=== PATIENT | female | born 1995 | race Caucasian/White ===

== ENCOUNTER 2021-08-22 13:03 | Outpatient (CLI) | payer BC, SELFPAY ==
--- NOTE | 2021-08-22 13:00 | CRLHL7_ITS ---
For Patients: As a result of the Century Cures Act, medical imaging exams and procedure reports are released immediately into your electronic medical record. You may view this report before your referring provider. If you have questions, please contact your health care provider. INDICATION: Dating and viability. LMP 06/20/2021. COMPARISON: None. TECHNIQUE: Real-time odom-scale imaging of the pelvis was performed. FINDINGS: Sonographic imaging demonstrates a single living intrauterine gestation. The embryo has a regular cardiac rate measuring 171 beats per minute. The embryo`s crown-rump length measurement of 2.0 cm corresponds to a gestational age of 8 weeks 4 days with a sonographic due date of 03/30/2022. There is a normal-appearing yolk sac. The placenta has not yet developed. There is a 2.2 x 0.3 x 1.3 cm hypoechoic collection along the left aspect of the gestational sac compatible with a subchorionic hemorrhage. The right ovary measures 4.4 x 2.1 x 2.5 cm and the left ovary measures 3.7 x 1.7 x 2.5 cm. Corpus luteum in the right ovary. There is also a 2.4 x 1.8 x 2.3 cm simple cyst in the right ovary. No free fluid in the cul-de-sac. IMPRESSION: 1. Single living intrauterine gestation with crown rump length 2.0 cm which corresponds to a gestational age of 8 weeks 4 days with a sonographic due date of 03/30/2022. 2. The clinical gestational age by LMP is 9 weeks 0 days. 3. Small subchorionic hemorrhage. Dictated by Estrella Blancas MD @ 08/22/2021 6:59:03 PM (Electronically Signed)
== END 2021-08-22 13:04 | disposition home or self-care (01) ==
LOC: US 13:06
PROVIDERS: Visit Provider Advanced Practice Midwife
DX: Z34.91 Encounter for supervision of normal pregnancy, unspecified, first trimester (principal); O20.9 Hemorrhage in early pregnancy, unspecified; Z3A.09 9 weeks gestation of pregnancy
CPT/HCPCS: 76817

== ENCOUNTER 2021-09-11 15:20 | Outpatient (CLI) | payer BC, SELFPAY ==
[2021-09-11 18:35] LABS: Hepatitis B Surface Antigen* Negative (Negative)
[2021-09-11 18:41] LABS: HIV 1/2/P24 Combo Screen* Negative (Negative)
[2021-09-11 18:52] LABS: Hepatitis C Virus Antibody* Negative (Negative)
[2021-09-14 04:19] LABS: Varicella-Zoster Virus Ab, IgG 571.7 IV
[2021-09-14 04:21] LABS: Rubella Antibody IgG 10.3 IU/mL
[2021-09-14 12:47] LABS: Rapid Plasma Reagin (RPR) Non Reactive (Non Reactive)
== END 2021-09-11 15:21 | disposition home or self-care (01) ==
LOC: NFLDREF 15:22
PROVIDERS: Visit Provider Advanced Practice Midwife
DX: Z34.91 Encounter for supervision of normal pregnancy, unspecified, first trimester (principal); Z3A.12 12 weeks gestation of pregnancy
CPT/HCPCS: 81420; 86592; 86703; 86762; 86787; 86803; 86850; 86900; 86901; 87086; 87340

== ENCOUNTER 2021-11-11 15:46 | Outpatient (CLI) | payer BC, SELFPAY ==
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
--- NOTE | 2021-11-11 16:00 | CRLHL7_ITS ---
For Patients: As a result of the Century Cures Act, medical imaging exams and procedure reports are released immediately into your electronic medical record. You may view this report before your referring provider. If you have questions, please contact your health care provider. INDICATION: Evaluate anatomy. COMPARISON: 08.22.21 TECHNIQUE: Real time odom scale imaging of the fetus was performed as well as color Doppler analysis of the umbilical vessels. FINDINGS: Sonographic imaging demonstrates a single living intrauterine gestation. Fetus demonstrates a regular cardiac rate of 163 beats per minute. Fetus has a vertex position. The placenta lies anteriorly without evidence of placenta previa. The edge of the placenta is located 11.6 cm from the internal cervical os. Amniotic fluid volume appears normal. Single deepest vertical pocket: 5.5 cm. The cervix is closed and measures 3.7 cm in length. The composite ultrasound gestational age is calculated at 20 weeks 6 days with an estimated sonographic due date of 03/25/2022. The estimated weight is 405 grams which lies at the 78th %. The following biometric measurements were obtained: Biparietal diameter: 4.8 cm/20 weeks 3 days 41st% Head circumference: 17.9 cm/20 weeks 2 days 31st% Abdominal circumference: 16.2 cm/21 weeks 2 days 68th% Femur length: 3.6 cm/21 weeks 2 days 68th% The HC/AC ratio measures: 1.10 range (1.06-1.25) On anatomic survey, there is a normal appearance of the cerebral ventricles, cavum septi pellucidi, cisterna magna and cerebellum. The nose, lips, and facial profile appear normal. The cervical, thoracic and lumbar spine are well visualized and appear normal. There is a normal four-chamber heart view and the left and right ventricular outflow tracts appear normal. The diaphragm and stomach appear normal. The kidneys and bladder also appear normal. There is a normal three-vessel cord. cord insertion site is located 8 millimeters from the edge of the placenta. The four extremities appear normal. IMPRESSION: Concordance of clinical and sonographic dating. Incomplete visualization of the four-chamber heart and outflow tracts. Remainder of the anatomic survey normal. Short-term follow-up recommended. Marginal placental cord insertion located 8 millimeters from the edge of the placenta. Dictated by Jerry Vazquez MD @ 11/12/2021 9:39:56 AM (Electronically Signed)
== END 2021-11-11 15:47 | disposition home or self-care (01) ==
LOC: US 15:46
PROVIDERS: Visit Provider Physician Assistant
DX: Z34.82 Encounter for supervision of other normal pregnancy, second trimester (principal); Z3A.20 20 weeks gestation of pregnancy
CPT/HCPCS: 76805

== ENCOUNTER 2021-11-18 11:38 | Emergency (ER) | payer BC, SELFPAY ==
[2021-11-18 11:45] VITALS: BP 119/71; PULSE 81; RESP 20; O2SAT 97; BMI 32.3
--- NOTE | 2021-11-18 11:49 | ED_ITS ---
HPI - General Adult General Chief complaint: Abdominal Pain Stated complaint: 21 weeks /from [facility]/appendix concerns Time Seen by Provider: 11/18/21 11:45 History of Present Illness HPI narrative: 26-year-old young woman presenting to the emergency department after being seen in Women's Health with concern of right lower quadrant abdominal pain. Was in usual state of health at 21+ week ; looks like on my review of records only potential complication is marginal cord insertion. She was in usual state of health. This morning went to the bathroom and urinated without difficulty. She also had a normal bowel movement. Would not consider herself constipated. Headed downstairs and was suddenly hit with the intense pain in the right low back flank area that also seemed to radiate around to the front and down the front of her right thigh not going beyond her knee. Does not have a history of back problems although not so long ago did strain her back a little bit at work; she works in food and beverage cashier at [employer]. She has not noted any dysuria or hematuria. Admittedly has not urinated since this onset of pain. She is not able to relieve it anyway. Not really describing any exacerbating factors either other than notes was sore with palpation in the right lower abdomen. Is Center with concern of appendicitis. Has not had any fever. Was a little nauseated earlier but no longer. Does not have a personal history of kidney stones and does not recall any of this in her family either. There is no new trauma at work. Does not describe any abdominal cramping that would seem to be related to or unusual vaginal discharge. She would prefer not to receive any pain medication noting that she does not want take Tylenol during . Related Data Home Medications Medication Instructions Recorded Confirmed prenat.vits,rogelio,xaz-qire-uoyhy 1 tab PO QDAY 08/22/21 11/18/21 acetaminophen 500 mg capsule 1,000 mg PO Q6H PRN 09/26/21 11/18/21 calcium carbonate 600 mg calcium 600 mg PO QDAY 09/26/21 11/18/21 (1,500 mg) tablet (Calcium) cholecalciferol (vitamin D3) 50 50 mcg PO QDAY 09/26/21 11/18/21 mcg (2,000 unit) capsule Previous Rx's Medication Instructions Recorded ondansetron 4 mg disintegrating 4 mg PO Q6H PRN nausea and 11/18/21 tablet vomiting #10 tabs oxycodone-acetaminophen 5 mg-325 1 - 2 tab PO Q6H PRN pain #12 tabs 11/18/21 mg tablet (Endocet) Allergies Allergy/AdvReac Type Severity Reaction Status Date / Time amoxicillin Allergy Mild Hives Uncoded 11/18/21 11:03 Review of Systems Status of ROS: Reports: 10 or more systems reviewed and unremarkable except as noted in History and below PFSH PFSH Medical History Anxiety Depression Surgical History History of placement of ear tubes [place] teeth extracted Family History Maternal Grandmother Cancer Father Heart attack FH: coronary artery bypass surgery Paternal Grandmother Cancer Social History Narrative: SOCIAL Education: 12th grade Work: cook at [employer] Partner: Denis russo Lives with: and son Pets: dog, cat Abuse: Denies past/present Special Diet: Denies Ok with a blood transfusion: yes Culture or orthodoxy beliefs: denies Smoking Status: Former smoker Do you use any of these nicotine containing products: E-Cigarettes Second hand tobacco smoke exposure: No How often do you have a drink containing alcohol: never How often do you have six or more drinks on one occasion: Never AUDIT-C Alcohol total score: 0 Non-prescribed substance use: denies use Little interest or pleasure in doing things: not at all Feeling down, depressed, or hopeless: not at all service: No Exam Narrative: Exam Narrative: Pleasant. NAD. Skin is warm and dry. Cheeks little flushed. Cranial nerves 2-12 intact. Breathing easily. Lungs appear to be clear. Cardiovascular with regular rate and rhythm Abdomen is soft. Appropriately gravid. She is ivtf-fd-exyinofyfl tender palpation deep in the right lower quadrant just above the inguinal area. Pain in areas as described in the upper sacrum and flank is not really reproducible. No SI area tenderness. No piriformis tenderness. Rotation of the hip does not exacerbate pain though she is a little hesitant. Negative straight leg raise. No pain to palpation over the leg. Extremities are well perfused. No significant edema. Const: Vital Signs, click to edit/add: Vital Signs - 24 hr 11/18/21 11:45 11/18/21 12:49 Pulse Rate [Pulse Oximeter] 81 67 Respiratory Rate 20 18 Blood Pressure [Ri t Upper Arm] 119/71 112/62 Pulse Oximetry 97 99 Oxygen Delivery Me thod Room Air Room Air Documenting provider has reviewed patient's vital signs: yes Course Course Hospital Course: IV hydration was initiated. Reevaluation(s) Reevaluation #1: Discomfort improved over time in the emergency department Vital Signs Vital signs: Initial Vital Signs Temperature Source Temporal Artery Scan 11/18/21 11:45 Pulse Rate 81 11/18/21 11:45 Pulse Rhythm 11/18/21 11:45 Respiratory Rate 20 11/18/21 11:45 Blood Pressure 119/71 11/18/21 11:45 Blood Pressure Mean 87 11/18/21 11:45 Blood Pressure Position Supine 11/18/21 11:45 Pulse Oximetry 97 11/18/21 11:45 Oxygen Delivery Method 11/18/21 11:45 Vital Signs Pulse Rate 81 11/18/21 11:45 Respiratory Rate 20 11/18/21 11:45 Blood Pressure 119/71 11/18/21 11:45 Pulse Oximetry 97 11/18/21 11:45 Oxygen Delivery Method 11/18/21 11:45 Pulse Rate 67 11/18/21 12:49 Respiratory Rate 18 11/18/21 12:49 Blood Pressure 112/62 11/18/21 12:49 Pulse Oximetry 99 11/18/21 12:49 Oxygen Delivery Method 11/18/21 12:49 Medical Decision Making MDM Narrative Medical decision making narrative: Have ordered ultrasound among other tests. Leading differential I think is ureteral stone and colic, possibly radicular back pain. Story is inconsistent for appendicitis. Possibly ovarian issue though also I think less likely. I observed renal ultrasound with our histology technologist. Appears to be measurable calcification in the proximal right ureter of about 6 mm. Jets were observed bilaterally. Radiology over-read IMPRESSION: Mild right hydronephrosis is not unexpected in . Questionable proximal ureteral stone. CRP mildly elevated. Urinalysis with ketones and blood Will be sending in pain medication and antiemetic. She is still reluctant to take anything but admits that might be a good idea to have something available. Lab Data Labs: Lab Results 11/18/21 11/18/21 11/18/21 Range/Units 12:00 12:20 12:20 WBC 9.63 (4.50-11.00) K/uL RBC 4.53 (4.00-5.20) m/uL Hgb 12.6 (12.0-16.0) gm/dL Hct 37.3 (33.0-51.0) % MCV 82 (80-100) fL MCH 28 (26-34) pg MCHC 34 (32-36) gm/dL RDW Coeff of Corina 12.4 (11.5-15.5) % Plt Count 296 (140-440) K/uL Neut % (Auto) 85.0 H (42.0-72.0) % Lymph % (Auto) 11.5 L (20-44) % [place] % (Auto) 3.2 (0.0-11.0) % Eos % (Auto) 0.1 (0.0-7.0) % Baso % (Auto) 0.1 (0.0-3.0) % Neut # (Auto) 8.20 H (1.7-7.0) K/uL Lymph # (Auto) 1.10 (0.90-2.90) K/uL [place] # (Auto) 0.30 (0.00-0.90) K/UL Eos # (Auto) 0.01 (0.00-0.50) K/uL Baso # (Auto) 0.01 (0.00-0.30) K/uL Abs Immat Gran (auto) 0.01 (0.00-0.30) K/uL Sodium 133 L (135-149) mmol/L Potassium 3.8 (3.6-5.1) mmol/L Chloride 106 (96-114) mmol/L Carbon Dioxide 17 L (20-32) mmol/L BUN 6 (5-24) mg/dL Creatinine 0.3 L (0.5-1.5) mg/dL Estimated Creat Clear 243.24 Estimated GFR 149 ml/min Glucose 94 (60-115) mg/dL Calcium 8.7 (8.4-10.6) mg/dL Total Bilirubin 0.2 (0.1-1.5) mg/dL Direct Bilirubin 0.1 (0.0-0.5) mg/dL AST 20 (12-35) U/L ALT 14 (4-35) U/L Alkaline Phosphatase 58 (40-150) U/L C-Reactive Protein 2.2 H (0.5-1.0) mg/dL Total Protein 7.2 (6.0-8.3) g/dL Albumin 4.0 (3.3-5.0) g/dL Urine Color Yellow (Yellow) Urine Appearance Clear (Clear) Urine pH 7.0 (5.0-8.5) Ur Specific [place] 1.020 (1.000-1.030) Urine Protein Negative (Negative) Urine Glucose (UA) Negative (Negative) Urine Ketones 2+ A (Negative) Urine Blood Trace-intact A (Negative) Urine Nitrite Negative (Negative) Urine Bilirubin Negative (Negative) Urine Urobilinogen 0.2 (0.2-1.0) Ur Leukocyte Esterase Negative (Negative) Urine RBC 5-10 A (0-2) Urine WBC 0-2 (0-5) Ur Squamous Epith Cells Moderate A (None-Few) Urine Bacteria Moderate A (None) Discharge Plan Discharge Clinical Impression: Colic, ureteral, Calculus, ureteral, Abdominal pain Patient Disposition: Home, Self-Care Condition: Stable Instructions: Ureteral Stones (ED) Additional Instructions: Certainly complicates this a little bit. I would however continue to stay well hydrated. Be seen/return to the emergency department for uncontrolled pain, repeated vomiting, associated fever. Follow-up in Women's Health if still having pain at 5 days. I would anticipate repeat ultrasound at that point, possibly repeat KUB, and then discussion for next step plans. In the meantime, strain urine. It would be appropriate to use as prescribed pain medications and anti nausea medications if needed. Prescriptions: New oxycodone-acetaminophen [Endocet] 5-325 mg tablet 1 - 2 tab PO Q6H PRN (Reason: pain) Qty: 12 0RF ondansetron 4 mg tablet,disintegrating 4 mg PO Q6H PRN (Reason: nausea and vomiting) Qty: 10 0RF No Action prenat.vits,rogelio,avq-ggqm-tsdlp Tablet 1 tab PO QDAY acetaminophen 500 mg capsule 1,000 mg PO Q6H PRN cholecalciferol (vitamin D3) 50 mcg (2,000 unit) capsule 50 mcg PO QDAY calcium carbonate [Calcium 600] 600 mg calcium (1,500 mg) tablet 600 mg PO QDAY Follow Up/Referrals: Provider,Not a Local [Primary Care Provider] - Stand Alone Forms: [employer] Info Instructions
--- NOTE | 2021-11-18 12:09 | CRLHL7_ITS ---
For Patients: As a result of the Century Cures Act, medical imaging exams and procedure reports are released immediately into your electronic medical record. You may view this report before your referring provider. If you have questions, please contact your health care provider. INDICATION: Right-sided flank pain. TECHNIQUE: Ultrasound renal and bladder complete. Martins-scale and color Doppler sonographic images were acquired of the kidneys and urinary bladder. COMPARISON: None. FINDINGS: Right kidney: 12.3 x 5 x 7.2 cm. Normal echotexture and cortex. Echogenic focus in the proximal ureter. Mild right hydronephrosis. Left kidney: 13.4 x 4.8 x 6.7 cm. Normal echotexture and cortex. No suspicious masses, stones, or hydronephrosis. Bladder: Normal in caliber and appearance. Color Doppler images demonstrate bilateral ureteral jets. IMPRESSION: Mild right hydronephrosis is not unexpected in . Questionable proximal ureteral stone. Dictated by Ari Pereira MD @ 11/18/2021 1:20:37 PM (Electronically Signed)
[2021-11-18 12:23] LABS: Appearance Urine Clear (Clear); Bilirubin Urine Negative (Negative); Blood Urine Trace-intact (Negative); Color Urine Yellow (Yellow); Glucose Urine Negative (Negative); Ketones Urine 2+ (Negative); Leukocyte Esterase Urine Negative (Negative); Nitrite Urine Negative (Negative); Protein Urine Negative (Negative); Urobilinogen Urine 0.2 (0.2-1.0)
--- OUTSIDE RECORDS SUMMARY | 2021-11-18 12:29 | XMS_ITS | Clinical Summary ---
:1995 Author Organization [employer] [facility] [employer] [facility] [place] [address] Care Team Providers Name Role Phone Rashmi [...] Name Administration Dates Next Due COVID-19 vaccine (MarketPageJ&TrackMaven) PF, 06/03/2020 MDV COVID-19 vaccine (Chilltime 06/05/2021 30mcg/0.3mL) 12YO+ LAUREL-SUCROSE PF, MDV DTaP [...] oz) AMAND A Complications: Intolerance Delivery Location: [facility] ([facility]) Comments: OT, Nuchal x1 Current OB Episode Summary Episode Dates Estimated Date of Pregravid Weight TWG (As of ) Delivery 07/30/2021 - Present 03/27/2022 (11/18/2021) Progress Notes 07/30/2021 - 5w5d - Alondra [...] ss Type Group WC WORKERS HALIMA CARTAGENA [id number] 2020-Pres [address] [place] [address] BLUE CROSS BLUE CROSS OF [id number] 2014-Presen [address] [facility] [place] [address] BLUE CROSS BLUE CROSS OF [id number] 2021-Presen [address] [facility] [place] [address] Tami Bowen Personal/Family Self 1995 [address] [address] Tami Bowen Workers Comp Self [address] [place] [address] Tami Bowen Motor Vehicle Self [address] (Home) [place] [address] Tami Bowen Motor Vehicle Self [phone] (Home) [place] [address] Advance Directives Latest Code Status on File Code Status Date Activated Date Inactivated Comments Full Code 10/25/2018 4:53 PM 10/27/2018 5:30 PM Care Teams Signal Apprentice Relationship Specialty Start Date End Date Rashmi Khan MD PCP - General Family Practice 05/04/[address] [place] [address] [place] [address]
[2021-11-18 12:30] LABS: Basophils Absolute Auto 0.01 K/uL (0.00-0.30); Basophils Percent Auto 0.1 % (0.0-3.0); Eosinophils Absolute Auto 0.01 K/uL (0.00-0.50); Eosinophils Percent Auto 0.1 % (0.0-7.0); Hematocrit 37.3 % (33.0-51.0); Hemoglobin* 12.6 gm/dL (12.0-16.0); Immature Granulocytes Abs Auto 0.01 K/uL (0.00-0.30); Lymphocytes Percent Auto 11.5 % (20-44); Mean Corpuscular HGB Conc 34 gm/dL (32-36); Mean Corpuscular Hemoglobin 28 pg (26-34); Mean Corpuscular Volume 82 fL (80-100); Monocytes Percent Auto 3.2 % (0.0-11.0); Platelet Count* 296 K/uL (140-440); RDW Coefficient of Variation % 12.4 % (11.5-15.5); Red Blood Count 4.53 m/uL (4.00-5.20); White Blood Count* 9.63 K/uL (4.50-11.00)
[2021-11-18 12:35] LABS: Slide Review Reflex No
[2021-11-18 12:38] LABS: Bacteria Urine Moderate; Squamous Epithelial Cell Urine Moderate (None-Few); WBC Urine 0-2 (0-5)
[2021-11-18] MEDS: 0.9 % SODIUM CHLORIDE 1000 ml 1,000 ML IV (12:48)
[2021-11-18 12:49] VITALS: BP 112/62; PULSE 67; RESP 18; O2SAT 99
[2021-11-18 13:00] LABS: Chloride* 106 mmol/L (96-114)
[2021-11-18 13:01] LABS: Potassium* 3.8 mmol/L (3.6-5.1); Sodium* 133 mmol/L (135-149)
[2021-11-18 13:03] LABS: Aspartate Amino Transferase* 20 U/L (12-35); Bilirubin Direct* 0.1 mg/dL (0.0-0.5); Bilirubin Total* 0.2 mg/dL (0.1-1.5); Carbon Dioxide* 17 mmol/L (20-32); Creatinine* 0.3 mg/dL (0.5-1.5); Est. Creatinine Clearance* 243.24; Estimated Glomerular Filt Rate 149 ml/min; Total Protein* 7.2 g/dL (6.0-8.3)
[2021-11-18 13:04] LABS: Alanine Aminotransferase* 14 U/L (4-35); Alkaline Phosphatase* 58 U/L (40-150); Blood Urea Nitrogen* 6 mg/dL (5-24); Calcium* 8.7 mg/dL (8.4-10.6); Glucose* 94 mg/dL (60-115)
[2021-11-18 13:06] LABS: C Reactive Protein* 2.2 mg/dL (0.5-1.0)
--- NOTE | 2021-11-18 13:53 | CRLHL7_ITS ---
For Patients: As a result of the Century Cures Act, medical imaging exams and procedure reports are released immediately into your electronic medical record. You may view this report before your referring provider. If you have questions, please contact your health care provider. INDICATION: Abdominal pain. TECHNIQUE: Abdomen 1 view. COMPARISON: None. FINDINGS: Bowel: Bowel pattern is normal. The amount of colonic stool is within normal limits. Other: No sign of significant free air. Small calcifications project over the right lower aspect of the pelvic inlet. Osseous structures are unremarkable for age. IMPRESSION: Small calcifications project over the right lower aspect of the pelvic inlet, which may reflect ureteral stones versus phleboliths. Dictated by Magnus Parra MD @ 11/18/2021 3:13:27 PM (Electronically Signed)
== END 2021-11-18 14:25 | disposition home or self-care (01) ==
PROVIDERS: Emergency Provider Family Medicine
DX: N20.1 Calculus of ureter (principal); Z3A.21 21 weeks gestation of pregnancy
CPT/HCPCS: 36415; 74018; 76770; 80048; 80076; 81001; 85025; 86140; 87086; 99284; J7030

== ENCOUNTER 2021-11-28 14:59 | Outpatient (CLI) | payer BC, SELFPAY ==
--- NOTE | 2021-11-28 15:00 | CRLHL7_ITS ---
For Patients: As a result of the Century Cures Act, medical imaging exams and procedure reports are released immediately into your electronic medical record. You may view this report before your referring provider. If you have questions, please contact your health care provider. INDICATION: F/U ON Suboptimal VIEWS OF HEART COMPARISON: 11/11/2021 TECHNIQUE: Real time odom scale imaging of the fetus was performed. FINDINGS: Sonographic imaging demonstrates a single living intrauterine gestation. Fetus demonstrates a regular cardiac rate of 159 beats per minute. Fetus has a transverse/vertex position. The placenta lies left anterior. Amniotic fluid volume appears normal. Single deepest vertical pocket: 5.7 cm. There is a normal four-chamber heart view and the left and right ventricular outflow tracts appear normal. IMPRESSION: Normal heart views. Dictated by Jerry Vazquez MD @ 12/01/2021 9:33:14 AM (Electronically Signed)
--- OUTSIDE RECORDS SUMMARY | 2021-11-28 15:01 | XMS_ITS | Clinical Summary ---
:1995 Author Organization [employer] [facility] [place] [address] Care Team Providers Name Role Phone Rashmi [...] Name Administration Dates Next Due COVID-19 vaccine (AirPairJ&PetroFeed) PF, 06/03/2020 MDV COVID-19 vaccine (MySmartPrice 06/05/2021 30mcg/0.3mL) 12YO+ LAUREL-SUCROSE PF, MDV DTaP [...] oz) AMAND A Complications: Intolerance Delivery Location: [facility] ([facility]) Comments: OT, Nuchal x1 Current OB Episode Summary Episode Dates Estimated Date of Pregravid Weight TWG (As of ) Delivery 07/30/2021 - Present 03/27/2022 (11/28/2021) Progress Notes 07/30/2021 - 5w5d - Alondra Donohue R N .1st OB Visit with Alina a[place] over the anabelle ne Advised patient to [...] ss Type Group WC WORKERS HALIMA CARTAGENA [id number] 2020-Pres [address] [place] [address] BLUE CROSS BLUE CROSS OF [id number] 2014-Presen [address] [facility] [place] [address] BLUE CROSS BLUE CROSS OF [id number] 2021-Presen [address] [facility] [address] Tami Bowen Personal/Family Self 1995 [address]Home) [place] [address] Tami Bowen Workers Comp Self 1995 [address] [place] [address] Tami Bowen Motor Vehicle Self 1995 [address] [address] Tami Bowen Motor Vehicle Self [phone] (Home) [place] [address] Advance Directives Latest Code Status on File Code Status Date Activated Date Inactivated Comments Full Code 10/25/2018 4:53 PM 10/27/2018 5:30 PM Care Teams Plate Glass Installer Helper Relationship Specialty Start Date End Date Rashmi Khan MD PCP - General Family Practice 05/04/[address] [place] [address] [place] [address]
== END 2021-11-28 15:00 | disposition home or self-care (01) ==
LOC: US 14:59
PROVIDERS: Visit Provider Obstetrics & Gynecology
DX: Z34.92 Encounter for supervision of normal pregnancy, unspecified, second trimester (principal); Z3A.23 23 weeks gestation of pregnancy
CPT/HCPCS: 76815; 76816

== ENCOUNTER 2022-01-02 13:54 | Outpatient (CLI) | payer BC, SELFPAY ==
--- OUTSIDE RECORDS SUMMARY | 2022-01-02 13:56 | XMS_ITS | Clinical Summary ---
:1995 Author Organization [employer] [facility] [employer] [facility] [place] [address] Care Team Providers Name Role Phone Rashmi [...] Name Administration Dates Next Due COVID-19 vaccine (AppCardJ&Information Development Consultants) PF, 06/03/2020 MDV COVID-19 vaccine (Amanda Huff DBA [employer]overy 06/05/2021 30mcg/0.3mL) 12YO+ LAUREL-SUCROSE PF, MDV DTaP [...] oz) AMAND A Complications: Intolerance Delivery Location: [facility] ([facility]) Comments: OT, Nuchal x1 Current OB Episode Summary Episode Dates Estimated Date of Pregravid Weight TWG (As of ) Delivery 07/30/2021 - Present 03/27/2022 (01/02/2022) Progress Notes 07/30/2021 - 5w5d - Alondra [...] Hepatitis C screening for age 0305/09/2012 18-79 COVID-19 vaccine series (3 - 07/31/2021 06/05/2021, 021 Booster for Peter series) Influenza for age 9-49 10/23/2021 11/17/2019, 12/05/2018, 12/01/2016, Additional history exists Pap test for age 21-65 03/03/2022 03/03/2019, 12/20/2015 Depression screening for age 12+ 06/05/2022 06/05/2021, 11/2019, 03/03/2019, Additional history exists BMI (ht and wt on same day) for 07/03/2022 07/03/2021, 05/23, age 18+ 12/30/2020, Additional history exists Tetanus booster 08/29/2028 08/29/2018, 12/01/2016, 11/03/2006 Tdap Completed 08/29/2018, 12/01/2016, 11/03/2006 Results Not on filefrom Last 3 Months Insurance Payer Benefit Plan / Subscriber ID Effective Dates Phone Addre ss Type Group WC WORKERS WC CARTAGENA [id number] 2020-Pres [address] [facility] [place] [address] BLUE CROSS BLUE CROSS OF [id number] 2014-Presen [address] [place] [address] BLUE CROSS BLUE CROSS OF [id number] 2021-Presen [address] [facility] [place] [address] Tami Bowen Personal/Family Self 1995 [address] (Home) [place] [address] Tami Bowen Workers Comp Self 1995 [address] (Home) [place] [address] Tami Bowen Motor Vehicle Self 1995 [address] (Home) [place] [address] Tami Bowen Motor Vehicle Self [phone] (Home) [place] [address] Advance Directives Latest Code Status on File Code Status Date Activated Date Inactivated Comments Full Code 10/25/2018 4:53 PM 10/27/2018 5:30 PM Care Teams Clinical Account Executive Relationship Specialty Start Date End Date Rashmi Khan MD PCP - General Family Practice 05/04/[address] [place] [address] [place] [address]
[2022-01-06 11:45] LABS: Rapid Plasma Reagin (RPR) Non Reactive (Non Reactive)
== END 2022-01-02 13:55 | disposition home or self-care (01) ==
LOC: NFLDREF 13:54
PROVIDERS: Visit Provider Obstetrics & Gynecology
DX: Z34.90 Encounter for supervision of normal pregnancy, unspecified, unspecified trimester (principal)
CPT/HCPCS: 86592

== ENCOUNTER 2022-02-03 14:59 | Outpatient (CLI) | payer BC, SELFPAY ==
--- NOTE | 2022-02-03 15:00 | CRLHL7_ITS ---
For Patients: As a result of the Cures Act, medical imaging exams and procedure reports are released immediately into your electronic medical record. You may view this report before your referring provider. If you have questions, please contact your health care provider. INDICATION: Check growth. COMPARISON: OB ultrasound 11/11/2021. TECHNIQUE: Real time odom scale imaging of the fetus was performed. FINDINGS: Sonographic imaging demonstrates a single living intrauterine gestation. The fetus has a regular cardiac rate of 161 beats per minute. The fetus has a cephalic orientation. The placenta lies anteriorly without evidence of placenta previa. Eccentric placental cord insertion located 5.7 cm from the placental margin. Amniotic fluid volume appears normal with single deepest pocket measuring 6.8 cm. The composite ultrasound gestational age is calculated at 32 weeks 6 days with an estimated sonographic due date of 03/25/2022. The estimated weight is 2090 grams which lies at the 53rd percentile. The following biometric measurements were obtained: Biparietal diameter: 8.25 cm (33 weeks 1 day) (60th percentile) Head circumference: 30.23 cm (33 weeks 4 days) (38th percentile) Abdominal circumference: 30.28 cm (34 weeks 2 days) (90th percentile) Femur length: 5.79 cm (30 weeks 2 days) (less than 3rd percentile) The HC/AC ratio measures: 1.00 (range 0.96-1.11) IMPRESSION: 1. Single living intrauterine gestation in cephalic position with heart rate 161 beats per minute. 2. Ultrasound gestational age 32 weeks 6 days with sonographic due date 03/25/2022. This is concordant with the clinical gestational age of 32 weeks 4 days. 3. Estimated weight is 53rd percentile. Dictated by Estrella Blancas MD @ 02/03/2022 11:23:46 PM (Electronically Signed)
--- OUTSIDE RECORDS SUMMARY | 2022-02-03 15:01 | XMS_ITS | Clinical Summary ---
:1995 Author Organization [facility] [employer] [facility] [place] [address] Care Team Providers Name Role Phone Rashmi [...] Name Administration Dates Next Due COVID-19 vaccine (GenomeJ&GROUNDBOOTH) PF, 06/03/2020 MDV COVID-19 vaccine (Agentrun 06/05/2021 30mcg/0.3mL) 12YO+ LAURLE-SUCROSE PF, MDV DTaP 11/03/2006 Human Papilloma Virus [...] Tobacco Use Types Packs/Day Years Used Date Smoking Tobacco: Former Cigarettes Smokeless Tobacco: Never Tobacco Cessation: Ready to Quit: No; Co [...] one Less than mo nthly 03/03/2019 occasion? Estimated Date of Delivery Comments Yes 03/27/2022 [...] Epidu N Andree 8 9 GILLI KJR, /2018 2d (7 lb VACU ral ng S,BB AJE 6.2 oz) AMAND A Complications: Intolerance Delivery Location: [facility]) Comments: OT, Nuchal x1 Current OB Episode Summary Episode Dates Number of Fetuses Estimated Date of De livery 07/30/2021 - Present (02/03/2022) 2022 (set by Alondra Donohue, RN on 022 based on Alternate DAVIS Entry) Dating Summary Based On DAVIS GA Diff Last Menstrual Period on 06/20/2021 (Approximate) 03/27/2022 Same Alternate DAVIS Entry 03/27/2022 Working Notes Progress Notes - Phone OB Encounter - - GA:5w5d 07/30/2021 - 5w5d - Alondra Donohue R N Formatting of this note is different fro m the original. .1st OB Visit with Alina [place] over [...] exists Tetanus booster 08/29/2028 08/29/2018, 12/01/2016, 11/03/2006 HIV for age 15-65 Completed 03/22/2018 Tdap Completed 08/29/2018, 12/01/2016, 11/03/2006 Results Not on filefrom Last 3 Months Insurance Payer Benefit Plan / Subscriber ID Effective Dates Phone Addre ss Type Group WC WORKERS HALIMA RODASHER [id number] 2020-Pres [address] MAR YALICE KHANNA [facility] [place] [address] BLUE CROSS BLUE CROSS OF [id number] 2014-Presen [address] [place] [phone] BLUE CROSS BLUE CROSS OF [id number] 2021-Presen [address] [place] [phone] Tami Bowen Personal/Family Self 1995 [address]) [place] [address] Tami Bowen Workers Comp Self 1995 [address]) [place] [address] Tami Bowen Motor Vehicle Self 1995 [address] ([place]) [place] [address] Tami Bowen Motor Vehicle Self [phone] (Home) [place] [address] Advance Directives Latest Code Status on File Code Status Date Activated Date Inactivated Comments Full Code 10/25/2018 4:53 PM 10/27/2018 5:30 PM Care Teams Specimen Preparation Assistant Relationship Specialty Start Date End Date Rashmi Khan MD PCP - General Family Practice 05/04/18 [address] [facility] [place] [address]
== END 2022-02-03 15:00 | disposition home or self-care (01) ==
PROVIDERS: Visit Provider Registered Nurse
DX: O43.193 Other malformation of placenta, third trimester (principal); Z3A.32 32 weeks gestation of pregnancy
CPT/HCPCS: 76816; 87086

== ENCOUNTER 2022-02-27 15:28 | Outpatient (CLI) | payer BC, SELFPAY ==
[2022-02-28 16:00] LABS: Strep B DNA Probe NEGATIVE (Negative)
[2022-03-01 07:25] LABS: Strep B Pen/Amox Allergy No
== END 2022-02-27 15:29 | disposition home or self-care (01) ==
PROVIDERS: Visit Provider Obstetrics & Gynecology
DX: Z34.93 Encounter for supervision of normal pregnancy, unspecified, third trimester (principal); Z3A.36 36 weeks gestation of pregnancy
CPT/HCPCS: 87081; 87653

== ENCOUNTER 2022-03-13 10:55 | Inpatient (IN) | payer BC, SELFPAY ==
[2022-03-13] VITALS (36 sets, daily range): BP systolic 119–196; BP diastolic 52–91; PULSE 75–125; RESP 16–18; TEMP 36.6–36.9; O2SAT 80–100; BMI 36.7
--- NOTE | 2022-03-13 11:33 | PM.OBHPLI ---
OB - H&P: HPI Labor/Induction History of Present Illness Time Seen by Provider: 11:35 Date Seen: 03/13/22 Chief Complaint: Elevated blood pressure at 38 weeks 0 days gestation. Chief complaint: Maternity : 2 Para: 1 Indications for induction: induced hypertension Narrative: Tami Bowen is a 26 year old 2 para 1 who was admitted for gestational hypertension with 2 blood pressure readings of 140s/90s in the clinic today. She is 38 weeks 0 days gestation with an DAVIS of 03/27/2022 by a last menstrual period of 06/20/2021 which was consistent with early ultrasound. She also complains of severe headache and nausea and vomiting since last night. She denies any respiratory symptoms: No sore throat, cough, nasal congestion, fever or loss of sense of taste/smell. She denies having contractions. Her baby has been moving normally. Her feet history and physical was completed by Dr. Menjivar on 03/06/2022. Please see that note for complete details. On admission her membranes were intact. Preeclampsia labs: CBC without diff, AST, ALT, creatinine, BUN and urine for protein/creatinine ratio were ordered. OB PROBLEM LIST: -Denis 1. Anxiety and Depression-declines medications at this time. 2. Needs a pap . 3. h/o traumatic first delivery 4. Marginal cord insertion. US for EFW at 32 weeks. 32 weeks: EFW: 53%. BPD 60%, HC 38%, AC 90%, FL <3%. Eccentric cord insertion now 5.7cm from edge. 5. Incomplete views of heart at 20 weeks; repeat scan normal. 6. GHTN r/o PreE (03/13/2022) - Mild ranging BP x 2 - Will move toward induction - PreE labs to be drawn at center Covid: Vaccinated and boosted Flu: 11/28 Tdap: 01/21/22 GENERAL APPEARANCE: Pleasant, , well-groomed woman in no acute distress, appears somewhat anxious. VITAL SIGNS: as noted in nursing notes HEAD: Normocephalic, atraumatic. THYROID: no masses, nodularity, tenderness or enlargement. LUNGS: Clear to auscultation bilaterally without wheezes, rales or rhonchi. HEART: Regular rate and rhythm with normal S1 and S2. No gallop, rub or murmur. ABDOMEN: Gravid. Soft, nontender, nondistended, with normal bowels sounds throughout. EFM: Baseline: 130s, accelerations present, no decelerations, sporadic contractions, reactive, category 1. PRESENTATION: Vertex by Wang's maneuvers. SVE per Dr. Menjivar: 1.5 cm/ 30 %/ -1/soft/mid. Lovett score: 6 EXTREMITIES: No cyanosis, clubbing, or edema. No varicosities. NEUROLOGIC: Normal gait and balance. Normal deep tendon reflexes at bilateral patella 2+/2, equal without clonus. PSYCHIATRIC: alert and oriented x3. Normal speech pattern, eye contact and affect. SKIN: Warm, dry, and well perfused. Good turgor. No lesions, nodules or rashes. Assessment: 26-year-old 2 para 1001 at 38 weeks 0 days gestation with elevated blood pressure. Plan: 1. Vaginal Cytotec for cervical ripening. 2. Start Pitocin per induction protocol when Lovett score is >/= 8. 3. GBS negative 4. Blood type: B positive 5. Expect vaginal delivery 6. Is planning epidural for labor analgesia. Comments: Patient's history and physical from Dr. Menjivar on 03/06/2022: Patient's care began at 8 and 4/7 weeks gestation.? She is dated by first trimester US consistent with LMP.? EDC is March 27, 2022.? She has had routine visits since that time. Total visits so far: 11 GBS negative ALLERGIES:? 1. Amoxicillin MEDICATIONS:? See EMR OBSTETRIC HISTORY: G 2 P 1001.? One Vaginal delivery Delivery history: 1.? 10/25/2018: 40 and 0/7th weeks.? 3345 kg. Vacuum extraction. MEDICAL HISTORY:? Anxiety Depression PAST SURGICAL HISTORY:? History of placement of ear tubes [place] teeth extracted Narrative:? SOCIAL ? ? Education:? 12th grade ? ? 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 ? Partner: Denis russo ? ? Lives with:? and son ? ? Pets: dog, cat? ? Abuse:? Denies past/present ? ? Special Diet: Denies ? ? Ok with a blood transfusion:? yes ? Culture or jainism beliefs:? denies Smoking Status:? Former smoker Do you use any of these nicotine containing products:? E-Cigarettes Second hand tobacco smoke exposure:? No How often do you have a drink containing alcohol:? never How often do you have six or more drinks on one occasion:? Never AUDIT-C Alcohol total score:? 0 Non-prescribed substance use:? denies use Little interest or pleasure in doing things:? not at all Feeling down, depressed, or hopeless:? not at all service:? No Date of last pap smear: November 2018 History of abnormal pap smear: No : 2 Para: 1 (2000) # of abortions spontaneous: 0 # of abortions induced: 0 History of multiple gestations: No History of pregnancies: No History of ectopic pregnancies: No History of sexually transmitted diseases: No Treatment for infertility: No 13 POINT COMPREHENSIVE REVIEW OF SYSTEMS:? negative other than as dictated above. Meds Home Medications and Allergies Home Medications Medication Instructions Recorded Confirmed Type prenat.vits,rogelio,mov-epnf-ktdza 1 tab PO QDAY 08/22/21 03/13/22 History acetaminophen 500 mg capsule 1,000 mg PO Q6H PRN 09/26/21 03/13/22 History calcium carbonate 600 mg calcium 600 mg PO QDAY 09/26/21 03/13/22 History (1,500 mg) tablet (Calcium) cholecalciferol (vitamin D3) 50 50 mcg PO QDAY 09/26/21 03/13/22 History mcg (2,000 unit) capsule Allergies Allergy/AdvReac Type Severity Reaction Status Date / Time amoxicillin Allergy Hives Verified 03/13/22 11:25 OB - H&P: Exam Physical Exam: Vital signs: Pulse BP Pulse Ox 96 125/81 97 03/13/22 11:31 03/13/22 11:31 03/13/22 11:12
[2022-03-13 11:50] LABS: Hematocrit 35.6 % (33.0-51.0); Hemoglobin* 11.7 gm/dL (12.0-16.0); Mean Corpuscular HGB Conc 33 gm/dL (32-36); Mean Corpuscular Hemoglobin 26 pg (26-34); Mean Corpuscular Volume 78 fL (80-100); Platelet Count* 297 K/uL (140-440); Red Blood Count 4.57 m/uL (4.00-5.20); White Blood Count* 9.04 K/uL (4.50-11.00)
[2022-03-13 12:05] LABS: Slide Review Reflex No
[2022-03-13 12:06] LABS: Aspartate Amino Transferase* 22 U/L (12-35); Creatinine* 0.4 mg/dL (0.5-1.5); Estimated Glomerular Filt Rate 139 ml/min
[2022-03-13 12:07] LABS: Alanine Aminotransferase* 16 U/L (4-35); Blood Urea Nitrogen* 4 mg/dL (5-24); INR 0.94 (0.91-1.10); Prothrombin Time 13.2 Seconds
[2022-03-13 12:12] LABS: Fibrinogen* 583 mg/dL (200-450)
[2022-03-13] MEDS: miSOPROStoL 25 MCG/0.25 TABLET VAGINAL ×2 (12:21→15:41)
[2022-03-13 12:34] LABS: Total Protein Urine 25 mg/dL
[2022-03-13 12:35] LABS: Creatinine Urine 29.7 mg/dL
[2022-03-13 12:36] LABS: SARS PCR* Negative SARS-CoV-2 (Negative)
[2022-03-13] MEDS: ACETAMINOPHEN 500 MG TABLET 1000 MG PO (12:42)
[2022-03-13 13:17] LABS: Basophils Absolute Auto 0.01 K/uL (0.00-0.30); Basophils Percent Auto 0.1 % (0.0-3.0); Eosinophils Absolute Auto 0.09 K/uL (0.00-0.50); Hematocrit 35.9 % (33.0-51.0); Hemoglobin* 11.8 gm/dL (12.0-16.0); Immature Granulocytes Abs Auto 0.02 K/uL (0.00-0.30); Immature Granulocytes Pct Auto 0.2 %; Lymphocytes Percent Auto 18.3 % (20-44); Mean Corpuscular HGB Conc 33 gm/dL (32-36); Mean Corpuscular Hemoglobin 26 pg (26-34); Mean Corpuscular Volume 78 fL (80-100); Monocytes Percent Auto 7.3 % (0.0-11.0); Neutrophils Percent Auto 73.1 % (42.0-72.0); Platelet Count* 294 K/uL (140-440); RDW Coefficient of Variation % 13.3 % (11.5-15.5); Red Blood Count 4.58 m/uL (4.00-5.20); White Blood Count* 8.78 K/uL (4.50-11.00)
[2022-03-13 13:40] LABS: Slide Review Reflex No
--- NOTE | 2022-03-13 18:30 | PM.OBPNL ---
Subjective Date Seen: 03/13/22 Narrative: Subjective: Patient is comfortable with with contractions. Has received 2 doses of vaginal Cytotec. Is having regular contractions she is rating them 3/10. Her blood pressures have been 120s-130s/70s-80s. She gave verbal consent to artificially rupture membranes. Vital signs: Per electronic medical record. EFM: Baseline 130s, positive accelerations, negative decelerations, moderate variability, reactive. Category 1. [place]: Contractions every 2-3 minutes. SVE: 3 cm/70%/0/mid/soft. AROM occurred at 6:15Pm: Clear fluid. Lovett score: 9. Assessment: Tami is a 26-year-old 2 para 1001 at 38 weeks 1 days gestation undergoing induction of labor due to mild preeclampsia. Plan: 1. Start Pitocin at 7:40 p.m. if contractions continue to be mild per patient report. 2. The patient is planning an epidural for labor analgesia. 3. GBS negative 4. Rh positive Objective Vital Signs: Last Vital Signs Temp 97.9 F 03/13/22 18:19 Pulse 82 03/13/22 18:17 Resp 16 03/13/22 18:19 BP 137/87 03/13/22 18:17 Pulse Ox 97 03/13/22 11:12
[2022-03-13] MEDS: LACTATED RINGERS 1000 ML 1,000 ML IV (19:28)
[2022-03-13] MEDS: LIDOCAINE 2% (PF) 5 ML VIAL EPIDURAL (20:17)
[2022-03-13] MEDS: ROPIVACAINE 0.2% 100 ml 100 ML 12 MG EPIDURAL (20:20)
--- NOTE | 2022-03-13 20:25 | P.ANBPRC_ITS ---
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 Lives with: and son Pets: dog, cat Abuse: Denies past/present Special Diet: Denies Ok with a blood transfusion: yes Culture or hinduism beliefs: denies Smoking Status: Former smoker Do you use any of these nicotine containing products: E-Cigarettes Second hand tobacco smoke exposure: No How often do you have a drink containing alcohol: never How often do you have six or more drinks on one occasion: Never AUDIT-C Alcohol total score: 0 Non-prescribed substance use: denies use Little interest or pleasure in doing things: not at all Feeling down, depressed, or hopeless: not at all service: No Meds Home Medications and Allergies Home Medications Medication Instructions Recorded Confirmed Type prenat.vits,rogelio,qiw-kipe-dtbaj 1 tab PO QDAY 08/22/21 03/13/22 History acetaminophen 500 mg capsule 1,000 mg PO Q6H PRN 09/26/21 03/13/22 History calcium carbonate 600 mg calcium 600 mg PO QDAY 09/26/21 03/13/22 History (1,500 mg) tablet (Calcium) cholecalciferol (vitamin D3) 50 50 mcg PO QDAY 09/26/21 03/13/22 History mcg (2,000 unit) capsule Allergies Allergy/AdvReac Type Severity Reaction Status Date / Time amoxicillin Allergy Hives Verified 03/13/22 12:45 Results Labs Labs: Laboratory Results - last 24 hr 03/13/22 03/13/22 03/13/22 11:27 11:28 11:45 WBC 9.04 RBC 4.57 Hgb 11.7 L Hct 35.6 MCV 78 L MCH 26 MCHC 33 RDW Coeff of Corina Plt Count 297 Neut % (Auto) Lymph % (Auto) [place] % (Auto) Eos % (Auto) Baso % (Auto) Neut # (Auto) Lymph # (Auto) [place] # (Auto) Eos # (Auto) Baso # (Auto) INR Fibrinogen BUN Creatinine Estimated GFR AST ALT Urine Creatinine 29.7 Protein/Creatinin Ratio 0.80 H Urine Total Protein 25 SARS-CoV-2 (PCR) Negative SARS-CoV-2 Blood Type Antibody Screen 03/13/22 03/13/22 03/13/22 11:45 11:45 11:50 WBC 8.78 RBC 4.58 Hgb 11.8 L Hct 35.9 MCV 78 L MCH 26 MCHC 33 RDW Coeff of Corina 13.3 Plt Count 294 Neut % (Auto) 73.1 H Lymph % (Auto) 18.3 L [place] % (Auto) 7.3 Eos % (Auto) 1.0 Baso % (Auto) 0.1 Neut # (Auto) 6.40 Lymph # (Auto) 1.60 [place] # (Auto) 0.60 Eos # (Auto) 0.09 Baso # (Auto) 0.01 INR 0.94 Fibrinogen 583 H BUN 4 L Creatinine 0.4 L Estimated GFR 139 AST 22 ALT 16 Urine Creatinine Protein/Creatinin Ratio Urine Total Protein SARS-CoV-2 (PCR) Blood Type Antibody Screen 03/13/22 11:50 WBC RBC Hgb Hct MCV MCH MCHC RDW Coeff of Corina Plt Count Neut % (Auto) Lymph % (Auto) [place] % (Auto) Eos % (Auto) Baso % (Auto) Neut # (Auto) Lymph # (Auto) [place] # (Auto) Eos # (Auto) Baso # (Auto) INR Fibrinogen BUN Creatinine Estimated GFR AST ALT Urine Creatinine Protein/Creatinin Ratio Urine Total Protein SARS-CoV-2 (PCR) Blood Type B Positive Antibody Screen NEGATIVE Vital Signs Vital Signs: Last Vital Signs Temp 98.1 F 03/13/22 19:15 Pulse 85 03/13/22 20:20 Resp 16 03/13/22 19:15 BP 155/85 H 03/13/22 20:20 Pulse Ox 100 03/13/22 20:24 Weight: 97.9 kg Height: 163.2 cm Anesthesia Procedures Epidural Insertion Start Time: 20:00 Stop Time: 20:30 Start Date: 03/13/22 Stop Date: 03/13/22 Reason for Block: procedure for pain Patient Position: sitting Performed By: Kurt Song Preanesthetic Checklist: IV checked, risks and benefits discussed, surgical consent, monitors and equipment checked and anesthesia consent Prep: chlorhexidine gluconate Monitoring: blood pressure monitoring Approach: midline Vertebral Space: lumbar (1-5) Epidural Technique: HERMAN saline Needle Type: Tuohy needle Injection Technique: continuous catheter Needle gauge: 17 Needle Length (cm): 10 cm Needle Insertion Depth (cm): 5 Catheter Gauge: 19 Catheter Type: multi-orifice Catheter at skin depth (cm): 10 Test Dose Result: negative
[2022-03-13] MEDS: LACTATED RINGERS 1000 ML 1,000 ML 125 ML IV (20:34)
[2022-03-13] MEDS: PHENYLEPHRINE 100 MCG/ML SYRINGE IVP (20:53)
[2022-03-13] MEDS: OXYTOCIN 30 unit/500 ML in NS 30 UNIT/500 ML BAG 300 UNIT IVPB (21:39)
[2022-03-13] MEDS: LIDOCAINE 1 % PF 30 ML INJECTION (21:39)
--- NOTE | 2022-03-13 22:06 | PM.OBPRCVD ---
Procedure Delivery date: 03/13/22 Procedure Done: Global Procedure Details: Tami is a 26 year-old G to P 1001 now to admitted on 03/13/2022 at 11:30 a.m. at 38 Weeks, 1 Day gestation for induction of labor due to mild preeclampsia. AROM occurred at 6:15 p.m. on 03/13/2022 with clear fluid. Labor Analgesia: Epidural attempted that did not work well. Pitocin: No Labor onset: 03/13/2022 at 7:05 p.m.. Complete: 03/13/2022 at 9:07 p.m.. Pushin03/13/2022 at 9:09 p.m.. heart tones during second stage were: Moderate variability with variable decelerations with contractions with intermittent late return to baseline but reassuring overall. At 9:31 p.m. a viable [male/female] delivered in vertex direct OA presentation with restitution to ROT over an intact perineum via spontaneous vaginal delivery. The was placed on maternal abdomen. Cord was clamped and cut after a 60 second delay. Nose and mouth were bulb suctioned. weight pen. 8 at 1 minute and not at 5 minutes. Shoulder dystocia: No. Nuchal cord: No Placenta delivered 03/13/2022 delivered spontaneously and complete at 9:51 a.m. p.m. with velamentous insertion of a three-vessel umbilical cord Laceration(s): None Blood loss: 50 mL. Blood loss measurement type: Quantitative Sponge and needles counts are correct. Specimen: Placenta Mother and infant were stable after delivery. Infant's name: Garry The patient is planning on breast feeding. Events: Labor Induction and Other (Mild preeclampsia) Intrapartal Events: Labor Induction Induction method: per misoprostol protocol Delivery augmentation: rupture of membranes Delivery monitor: external FHT Route of delivery: Laceration description: None Anesthesia type: Epidural
[2022-03-14] VITALS (7 sets, daily range): BP systolic 114–124; BP diastolic 67–80; PULSE 70–99; RESP 14–18; TEMP 36.3–36.7; O2SAT 96–98
[2022-03-14 08:28] LABS: INR 0.96 (0.91-1.10); Prothrombin Time 13.4 Seconds
[2022-03-14] MEDS: LANOLIN CREAM 1 APPLIC TOPICAL (09:47)
[2022-03-14 09:59] LABS: Fibrinogen* 565 mg/dL (200-450)
--- NOTE | 2022-03-14 10:19 | PM.OBPNVD1 ---
OB - PN:Subj Subjective Time Seen by Provider: 10:19 Date Seen: 03/14/22 Patient comments OB post-: no complaints status: and doing well Narrative: Denies headache, RUQ aponte, nausea, increased swelling. OB - PN: Obj Exam Physical Exam: Vital signs: Temp Pulse Resp BP Pulse Ox O2 Del Method 97.9 F 76 18 121/79 97 03/14/22 08:00 03/14/22 08:00 03/14/22 08:00 03/14/22 08:00 03/14/22 08:00 03/14/22 08:00 Constitutional: Constitutional: no acute distress Routine Abdominal Exam: Abdominal: Present soft; Absent tenderness Fundus: Present firm Routine Extremities Exam: Extremities: Present normal inspection and pedal edema; Absent calf tenderness Routine Neurological Exam: Neurological: Present alert and oriented X3 Routine Psychiatric Exam: Psychiatric: Present normal affect OB - PN: Obj Data Labs Labs: Laboratory Results - last 24 hr 03/13/22 03/13/22 03/13/22 11:27 11:28 11:45 WBC 9.04 RBC 4.57 Hgb 11.7 L Hct 35.6 MCV 78 L MCH 26 MCHC 33 RDW Coeff of Corina Plt Count 297 Neut % (Auto) Lymph % (Auto) [place] % (Auto) Eos % (Auto) Baso % (Auto) Neut # (Auto) Lymph # (Auto) [place] # (Auto) Eos # (Auto) Baso # (Auto) INR Fibrinogen BUN Creatinine Estimated GFR AST ALT Urine Creatinine 29.7 Protein/Creatinin Ratio 0.80 H Urine Total Protein 25 SARS-CoV-2 (PCR) Negative SARS-CoV-2 Blood Type Antibody Screen 03/13/22 03/13/22 03/13/22 11:45 11:45 11:50 WBC 8.78 RBC 4.58 Hgb 11.8 L Hct 35.9 MCV 78 L MCH 26 MCHC 33 RDW Coeff of Corina 13.3 Plt Count 294 Neut % (Auto) 73.1 H Lymph % (Auto) 18.3 L [place] % (Auto) 7.3 Eos % (Auto) 1.0 Baso % (Auto) 0.1 Neut # (Auto) 6.40 Lymph # (Auto) 1.60 [place] # (Auto) 0.60 Eos # (Auto) 0.09 Baso # (Auto) 0.01 INR 0.94 Fibrinogen 583 H BUN 4 L Creatinine 0.4 L Estimated GFR 139 AST 22 ALT 16 Urine Creatinine Protein/Creatinin Ratio Urine Total Protein SARS-CoV-2 (PCR) Blood Type Antibody Screen 03/13/22 03/14/22 11:50 07:58 WBC RBC Hgb Hct MCV MCH MCHC RDW Coeff of Corina Plt Count Neut % (Auto) Lymph % (Auto) [place] % (Auto) Eos % (Auto) Baso % (Auto) Neut # (Auto) Lymph # (Auto) [place] # (Auto) Eos # (Auto) Baso # (Auto) INR 0.96 Fibrinogen 565 H BUN Creatinine Estimated GFR AST ALT Urine Creatinine Protein/Creatinin Ratio Urine Total Protein SARS-CoV-2 (PCR) Blood Type B Positive Antibody Screen NEGATIVE OB - PN: A/P Vaginal Delivery Assessment and Plan (1) (normal spontaneous vaginal delivery): Status: Acute (2) Mild preeclampsia: Problem details: BP stable since delivery Status: Acute Plan day: 1 Plan: routine care
[2022-03-14] MEDS: IBUPROFEN 600 MG TABLET PO (21:49)
[2022-03-15 00:18] VITALS: BP 120/78; PULSE 76; RESP 16; TEMP 36.3; O2SAT 97
[2022-03-15 04:43] VITALS: BP 121/81; PULSE 72; RESP 15; TEMP 36.5; O2SAT 96
[2022-03-15] MEDS: DOCUSATE SODIUM 100 MG CAPSULE PO (08:48)
[2022-03-15 09:00] VITALS: BP 114/76; PULSE 73; TEMP 36.4
--- NOTE | 2022-03-15 10:05 | PM.OBDSVD1 ---
DS: Providers Provider Date Seen: 03/15/22 Date of admission: 03/13/22 10:55 Primary care physician: Not a Local Provider Admitting Clinician: Claudia Davenport MD Attending Physician on discharge: Sudha Woods MD Date of Discharge: 03/15/22 DS: Diagnosis Discharge Diagnosis (1) (normal spontaneous vaginal delivery): Status: Acute (2) Mild preeclampsia: Status: Acute Problem details: BP stable since delivery Exam Const: Vital Signs, click to edit/add: Vital Signs - 24 hr 03/14/22 11:40 03/14/22 16:45 03/14/22 20:22 Temperature 97.7 F 97.4 F L 97.4 F L Pulse Rate [Pulse Oximeter] 82 77 99 Respiratory Rate 18 16 16 Blood Pressure [Ri ght Arm] 115/80 114/75 119/75 Pulse Oximetry 98 97 97 Oxygen Delivery Me thod Room Air Room Air Room Air 03/15/22 00:18 03/15/22 04:43 03/15/22 09:00 Temperature 97.4 F L 97.7 F 97.6 F Pulse Rate [Pulse Oximeter] 76 72 73 Respiratory Rate 16 15 Blood Pressure [Ri ght Arm] 120/78 121/81 114/76 Pulse Oximetry 97 96 Oxygen Delivery Me thod Room Air Room Air Room Air Documenting provider has reviewed patient's vital signs: yes Common normals: no apparent distress and oriented x3 General appearance: cooperative and comfortable Resp: Common normals: normal respiratory effort Cardio: Common normals: regular rate and regular rhythm Rate: regular rate Rhythm: regular rhythm : Uterus: U/2 and firm Lochia: scant Extremity: Common normals: normal to inspection and no pedal edema Neuro: Common normals: oriented x3 Psych: Common normals: affect normal OB - DS: Summary Hospital Course Hospital Course: The patient is a 26 year old G 2 P 1001 at 38 weeks gestation that was admitted to the Center on 03/13/22 for induction of labor secondary to preeclampsia without severe features. She had an uncomplicated vaginal delivery. She delivered a viable male . She is breast feeding. the patient has done well. Time spent discussing smoking cessation with patient: more than 10 minutes Peripartum Data delivery method: Vaginal Laceration description: None complications: none Infant Gender: Male Discharge Plan: Home Status at Discharge Cognitive/behavioral status at discharge: Some mood instability exacerbated by sleep deprivation Functional status at discharge: independent ambulation Overall status at discharge: patient is back to baseline Time Spent with Patient Time attestation: Total time spent providing and/or coordinating discharge services: Time spent: Less than 30 minutes Discharge Plan Discharge Disposition: Home, Self-Care Date of Admission: 03/13/22 10:55 Attending Provider on Discharge: Sudha Woods Primary Care Provider: Provider,Not a Local Condition: Stable Anticipated Discharge Date/Time: 03/15/22 12:30 Discharge Medications: New docusate sodium 100 mg Capsule 100 mg PO BID PRN (Reason: constipation) Qty: 100 0RF ibuprofen 600 mg Tablet 600 mg PO Q6H PRNQty: 30 0RF Continued prenat.vits,rogelio,vlr-mucr-ysieq Tablet 1 tab PO QDAY famotidine 20 mg tablet 20 mg PO BID Qty: 90 1RF acetaminophen 500 mg capsule 1,000 mg PO Q6H PRN cholecalciferol (vitamin D3) 50 mcg (2,000 unit) capsule 50 mcg PO QDAY calcium carbonate [Calcium 600] 600 mg calcium (1,500 mg) tablet 600 mg PO QDAY Discharge Orders: Discharge Order (Routine); Ordered 03/15/22 Ordered By: Sudha Woods Patient Education: Preeclampsia During (DC), Vaginal Delivery (DC) Additional Instructions: Discharge instructions were reviewed with the patient including signs and symptoms of infection and home going medications ACTIVITY RESTRICTIONS: Nothing vaginally for 6 weeks: No tampons or intercourse. No exercise or lifting restrictions. Off Work or School for a minimum of 6 weeks Symptoms to report to doctor: Bleeding that saturates more than one pad per hour Passing clots larger than the size of a golf ball Pain not relieved by prescribed medication Fever above 100.4 degrees Fahrenheit A foul vaginal odor Difficulty in emotions, mood, and functions Thoughts of hurting yourself and/or Painful, reddened area in your breast Any drainage, redness, or tenderness in your IV/epidural site Severe headache that doesn't improve after taking medications Changes in vision, including temporary loss of vision, blurred vision, and/or light sensitivity Upper abdominal pain (usually under ribs on the right side) Decrease in urination or painful, frequent urinating Chest pain Shortness of breath Tenderness or pain with redness and/swelling in the calf(s) of your leg FOLLOW-UP APPOINTMENTS: [facility] for a BP check?within 1 week of delivery P Call with BP greater than or equal to 160/110 1. Optional 2-week visit: incision check, discuss feeding concerns, review control options and screen for anxiety/depression. 2. 6-week visit for an annual exam. consultation services are available to all mothers and babies for the first year after delivery.? To make an appointment, please call [phone]. Activity Level: Activity as Tolerated Discharge Diet: Regular Follow Up Appointments: [facility] [Provider Group] Provider,Not a Local [Primary Care Provider] - Forms: NCR [employer] Info Instructions Labs Labs Laboratory Tests 03/14/22 03/13/22 03/13/22 Range/Units 07:58 11:50 11:50 WBC 8.78 (4.50-11.00) K/uL RBC 4.58 (4.00-5.20) m/uL Hgb 11.8 L (12.0-16.0) gm/dL Hct 35.9 (33.0-51.0) % MCV 78 L (80-100) fL MCH 26 (26-34) pg MCHC 33 (32-36) gm/dL RDW Coeff of Corina 13.3 (11.5-15.5) % Plt Count 294 (140-440) K/uL Neut % (Auto) 73.1 H (42.0-72.0) % Lymph % (Auto) 18.3 L (20-44) % [place] % (Auto) 7.3 (0.0-11.0) % Eos % (Auto) 1.0 (0.0-7.0) % Baso % (Auto) 0.1 (0.0-3.0) % Neut # (Auto) 6.40 (1.7-7.0) K/uL Lymph # (Auto) 1.60 (0.90-2.90) K/uL [place] # (Auto) 0.60 (0.00-0.90) K/UL Eos # (Auto) 0.09 (0.00-0.50) K/uL Baso # (Auto) 0.01 (0.00-0.30) K/uL INR 0.96 (0.91-1.10) Fibrinogen 565 H (200-450) mg/dL BUN (5-24) mg/dL Creatinine (0.5-1.5) mg/dL Estimated GFR ml/min AST (12-35) U/L ALT (4-35) U/L Urine Creatinine mg/dL Protein/Creatinin Ratio (0-0.19) Urine Total Protein mg/dL SARS-CoV-2 (PCR) (Negative) Blood Type B Positive Antibody Screen NEGATIVE 03/13/22 03/13/22 03/13/22 Range/Units 11:45 11:45 11:45 WBC 9.04 (4.50-11.00) K/uL RBC 4.57 (4.00-5.20) m/uL Hgb 11.7 L (12.0-16.0) gm/dL Hct 35.6 (33.0-51.0) % MCV 78 L (80-100) fL MCH 26 (26-34) pg MCHC 33 (32-36) gm/dL RDW Coeff of Corina (11.5-15.5) % Plt Count 297 (140-440) K/uL Neut % (Auto) (42.0-72.0) % Lymph % (Auto) (20-44) % [place] % (Auto) (0.0-11.0) % Eos % (Auto) (0.0-7.0) % Baso % (Auto) (0.0-3.0) % Neut # (Auto) (1.7-7.0) K/uL Lymph # (Auto) (0.90-2.90) K/uL [place] # (Auto) (0.00-0.90) K/UL Eos # (Auto) (0.00-0.50) K/uL Baso # (Auto) (0.00-0.30) K/uL INR 0.94 (0.91-1.10) Fibrinogen 583 H (200-450) mg/dL BUN 4 L (5-24) mg/dL Creatinine 0.4 L (0.5-1.5) mg/dL Estimated GFR 139 ml/min AST 22 (12-35) U/L ALT 16 (4-35) U/L Urine Creatinine mg/dL Protein/Creatinin Ratio (0-0.19) Urine Total Protein mg/dL SARS-CoV-2 (PCR) (Negative) Blood Type Antibody Screen 03/13/22 03/13/22 Range/Units 11:28 11:27 WBC (4.50-11.00) K/uL RBC (4.00-5.20) m/uL Hgb (12.0-16.0) gm/dL Hct (33.0-51.0) % MCV (80-100) fL MCH (26-34) pg MCHC (32-36) gm/dL RDW Coeff of Corina (11.5-15.5) % Plt Count (140-440) K/uL Neut % (Auto) (42.0-72.0) % Lymph % (Auto) (20-44) % [place] % (Auto) (0.0-11.0) % Eos % (Auto) (0.0-7.0) % Baso % (Auto) (0.0-3.0) % Neut # (Auto) (1.7-7.0) K/uL Lymph # (Auto) (0.90-2.90) K/uL [place] # (Auto) (0.00-0.90) K/UL Eos # (Auto) (0.00-0.50) K/uL Baso # (Auto) (0.00-0.30) K/uL INR (0.91-1.10) Fibrinogen (200-450) mg/dL BUN (5-24) mg/dL Creatinine (0.5-1.5) mg/dL Estimated GFR ml/min AST (12-35) U/L ALT (4-35) U/L Urine Creatinine 29.7 mg/dL Protein/Creatinin Ratio 0.80 H (0-0.19) Urine Total Protein 25 mg/dL SARS-CoV-2 (PCR) Negative SARS-CoV-2 (Negative) Blood Type Antibody Screen
== END 2022-03-15 12:00 | disposition home or self-care (01) | DRG 560 ==
PROVIDERS: Admitting Provider Obstetrics & Gynecology; Visit Provider Obstetrics & Gynecology
DX: O14.04 Mild to moderate pre-eclampsia, complicating childbirth (principal); Z3A.38 38 weeks gestation of pregnancy; Z37.0 Single live birth
CPT/HCPCS: 01967; 36415; 59200; 82565; 82570; 84156; 84450; 84460; 84520; 85025; 85027; 85384; 85610; 86850; 86900; 86901; 87635; 88307; A9270; J2001; J2370; J2795; J7120

== ENCOUNTER 2022-03-18 13:00 | Outpatient (CLI) | payer BC, SELFPAY ==
--- NOTE | 2022-03-18 17:00 | P.LACCB_ITS ---
Consult Note - Mom Date of Visit Date of visit: 03/18/22 microsoft bi consultant: Megha Zambrano Visit Code: Visit Patient's Information Phone number: [phone] : 2 Para: 2 Allergies amoxicillin Allergy (Verified 03/13/22 12:45) Hives Mother's Medical History: Medical History (Updated 03/21/22 @ 00:00 by ) Anxiety Depression Mild preeclampsia (03/13/22) Delivery Information Delivery type: Vaginal Weeks Gestation: 38.0 Gestational Age: AGA Weight: 3.11 kg Discharge Weight: 2.965 kg Baby's Information Baby's Age at Visit: 5 days Baby's Provider or Clinic: Dr. Greer Jaundice: Yes (TCB = 9.8) Reason for Consult Reason for Consult: difficulty latching Past Experience Past Experience: Yes (nursed her older child for a few weeks) Current Frequency of Day Feedings: about every three hours around the clock Both Breasts: No (mom has only nursed on the left side for the past 24 hours) Suck: strong Latch: shallow Length of Time: 20 minutes Goals: mom would really like to be successful in nursing this baby Pumping Pumping: Yes (has pumped four times since D/C) Quantity Pumped: up to 2 oz total each time Supplementing EMB Supplement: Yes (baby has been given 1 oz EBM a few times since D/C) Formula Supplement: No Baby Elimination Number of Wet Diapers a Day: at least every other feeding Number of BM a Day: 2 - 3; brownish-yellow Onsite Pre-Feed weight: 2.972 kg Post-Feed weight: 2.982 kg Milk Transferred (mL): 10 Assessments/Interventions Assessments/Interventions: Met with mom and this now 5 day old ex- term AGA baby for consult.? Mom reports that seemed to be going well in the first few days, but when her milk came in on 03/16 she became very engorged and baby started having a hard time.? He began to have a more shallow latch and for the past 24 hours has refused to nurse on the right.? She also developed a clog in her right breast the evening 03/16 and reports it's not improving despite fairly aggressive massage and some pumping.? She's pumped about 4 times since getting the clog and gets about 2 oz total, but less than half of that is from the right side.? Baby has been supplemented with her EBM a few times, taking one oz each time. Right breast appears more engorged than the left with plugged ducts felt at the top of the breast; left breast is soft.? Nipple are a little large but everted, the right side flattens a little with compression.? Both have about a 4 mm fissure across the middle that is scabbing.? Baby has gained 24 grams since his last visit on 03/17 and is 4% below BW on DOL 5.? Per mom he has equal ROM when turning his head and moving his extremities. His upper and lower frenulum are WNL.? His palate is a little high.? His tongue has good lateral movement and extends past the gumline when sucking on a finger; he has a strong suck.? Mom hand expressed the right side for about a minute, then attempted to latch him.? Baby would latch but then loose it almost immediately; mom said it actually felt like he never latched on.? After several attempts she switched to the left side.? Baby latched but it was shallow and mom was in a lot of pain.? We made several more attempts in different positions, both with/without the nipple shield but were not successful in getting him latched comfortably; mom reported each time it was pinchy.? He transferred 10 ml. Plan: 1. Suggested mom stop nursing for 24 hours to give her nipples a chance to start healing.? Try again with or without the nipple shield in the afternoon of 03/19, ok to hand express before nursing if needed to soften the breast. 2. Mom will pump whenever baby eats (every 2 - 3 hours).? Reviewed pump settings and length of session.? As she has a [id number] hands free pump, suggested she contact her insurance company about getting a new electric pump and handouts for [employer] and [facility] given. 3. Supplement baby with 1 - 1.5 oz EBM/formula ALD or at least every 2 - 3 hours.? Mom practiced paced feeding and handout was given. 4. Reviewed lymph drainage massage and suggested she try this TID, handout given.? Also suggested warm packs before pumping and cool packs afterwards.? Reviewed s/s of mastitis. 4. F/U with PCP on 03/20 for a circumcision and I will f/u by phone that day as well. Meds Home Medications and Allergies Home Medications Medication Instructions Recorded Confirmed Type prenat.vits,rogelio,fja-jyod-aerqu 1 tab PO QDAY 08/22/21 03/13/22 History acetaminophen 500 mg capsule 1,000 mg PO Q6H PRN 09/26/21 03/13/22 History calcium carbonate 600 mg calcium 600 mg PO QDAY 09/26/21 03/13/22 History (1,500 mg) tablet (Calcium) cholecalciferol (vitamin D3) 50 50 mcg PO QDAY 09/26/21 03/13/22 History mcg (2,000 unit) capsule Allergies Allergy/AdvReac Type Severity Reaction Status Date / Time amoxicillin Allergy Hives Verified 03/13/22 12:45
== END 2022-03-18 13:01 | disposition home or self-care (01) ==
LOC: OB LAC 13:01
PROVIDERS: Visit Provider Obstetrics & Gynecology
DX: Z39.1 Encounter for care and examination of lactating mother (principal)
CPT/HCPCS: 99211

== ENCOUNTER 2023-05-12 09:41 | Day surgery (SDC) | payer BC, SELFPAY ==
[2023-05-12] VITALS (15 sets, daily range): BP systolic 99–129; BP diastolic 43–85; PULSE 45–79; RESP 12–18; TEMP 36.5–36.9; O2SAT 96–100; BMI 34.5
[2023-05-12] MEDS: LACTATED RINGERS 1000 ML 1,000 ML 100 ML IV (09:20)
[2023-05-12 10:12] LABS: Hemoglobin* 14.3 gm/dL (12.0-16.0)
[2023-05-12 10:28] LABS: HCG Qualitative Serum* Negative (Negative)
[2023-05-12] MEDS: SODIUM CHLORIDE 0.9 % (FLUSH) 10 ML SYRINGE IVF (10:29)
[2023-05-12] MEDS: BUPIVACAINE 0.25 %/EPI 1:200K 30 ml INJECTION (11:45)
--- NOTE | 2023-05-12 12:24 | W.ANESCHARGE ---
Anesthesia Charges Start Date/Time Anesthesia Start Date: 05/12/23 Anesthesia Start Time: 11:17 Stop Date/Time Anesthesia Stop Date: 05/12/23 Anesthesia Stop Time: 12:23
--- NOTE | 2023-05-12 12:29 | W.ANESCHARGE ---
Anesthesia Charges Start Date/Time Anesthesia Start Date: 05/12/23 Anesthesia Start Time: 11:17 Stop Date/Time Anesthesia Stop Date: 05/12/23 Anesthesia Stop Time: 12:23
--- NOTE | 2023-05-12 12:51 | W.PM.H&PU ---
History & Physical Update History & Physical Update H&P Reviewed and patient assessed: No changes noted H&P Updates: Tami is very nervous for surgery. I reiterated that this is an elective procedure and we reviewed other options such as vasectomy. She reports that she would be too anxious that the vasectomy would fail. She absolute does not want to get again and still continues to want to proceed with scheduled procedure.
--- NOTE | 2023-05-12 12:53 | P.PCNOB_ITS ---
Procedure Pre-op/Post-op diagnoses: Pre-Op/Post-Op Diagnoses Operation Date: 05/12/23 11:30 <No data on this case meets the specified criteria> Procedure: Procedures Operation Date: 05/12/23 11:30 Actual Procedure Side Surgeon p Bilateral Laparoscopic Salpingectomy Bilateral Asya Menjivar MD Cushion Cover Inspector: Debbie Werner Findings: Pelvic exam: Mons normal, clitoris normal, urethral meatus normal. Labia minora and majora normal in appearance bilaterally. Perineum and anus normal appearance. Vaginal introitus normal appearance. On laparoscopy: Normal uterus, bilateral fallopian tubes and bilateral ovaries. Liver edge appeared normal. Unrelated, she has a wound on her upper abdomen from recent skin biopsy (last ). The lesion as small circumferential induration and erythema. Small amount of drainage was also noted. This was covered with Tegaderm for the duration of the procedure and Tegaderm was removed at the end. Advised patient to follow up with her livestock yard supervisor as this lesion appears infected. Narrative: Preoperative diagnosis: Tami is a 28-year-old who desires permanent sterilization. Postoperative diagnosis: Same. Procedure: Laparoscopic bilateral salpingectomy Anesthesia: General endotracheal, Local Surgeon: Asya Menjivar MD administrative assistant data entry: YEIMI López EBL: 5 mL Urine output: 50 mL clear urine IVF: 700 ml Procedure: Patient was taken to the operating room where general anesthetic was found to be adequate. She was placed in the dorsal lithotomy position and an exam under anesthesia was performed with findings stated above. She was then prepped and draped in a normal sterile manner. A Diaz catheter was then placed. A large sponge stick was placed into the vagina to be used as a manipulator was then placed. Attention was then turned to performing the laparoscopic portion of the procedure. All incisions were injected with 0.25% bupivicaine prior to incision. A vertical 5 mm infraumbilical, incision, was made and a 5 mm trocar placed under direct visualization with the laparoscope. 5 mm camera was placed within the 5 mm Fios Kii trocar, and advanced under direct visualization through the anterior abdominal wall into the peritoneal cavity, while tenting up the anterior abdominal wall. The trocar was removed. The balloon was inflated, holding the port in place. Pneumoperitoneum was achieved. Survey of the abdomen and pelvis revealed the above-noted findings. Two additional port sites were created. The first was in the patient's left lower quadrant, just superomedial to the left ASIS. The second was a hand's breath superior to and slightly medial to the first. Each was infiltrated with small amount of Marcaine prior to incision. A 5 mm incision was made at each site, after assuring that large vessels were out of harm's way. A 5 mm Fios Kii port was inserted at each site, under direct visualization and without complication. The balloon on each of the 3 ports was inflated, holding each in place. The left fallopian tube was grasped with a sliding grasper. The left fallopian tube was removed from the broad ligament using the LigaSure dissecting forceps starting at the fimbriated end of the tube. Sequential pedicles were then formed to the level of the cornua. The tube was then removed at the cornua and removed from the abdomen through the left lower quadrant port. The right fallopian tube was removed in a similar manner. Excellent hemostasis was noted of all pedicl es. The trocars were then removed under direct visualization. The CO2 gas was allowed to escape the infraumbilical port prior to its removal. All incisions were reapproximated using 4-0 Monocryl in a running subcuticular manner. Exofin was applied over each incision. The vaginal manipulator and Diaz catheter were removed. The patient tolerated this procedure well. Sponge, lap and instrument counts were correct x2 at the end of the procedure and the patient was taken to the recovery area in stable condition.
--- NOTE | 2023-05-12 13:06 | SUR.PHASEI ---
patient met discharge criteria per anesthesia
== END 2023-05-12 14:20 | disposition home or self-care (01) ==
PROVIDERS: PCP Family Medicine; Visit Provider Obstetrics & Gynecology
PROC: (CPT 58661; principal; 2023-05-12 11:45)
DX: Z30.2 Encounter for sterilization (principal)
CPT/HCPCS: 58661; 00840; 36415; 81025; 84703; 85018; 86850; 86900; 86901; 88302; J1100; J1200; J1630; J2250; J2405; J2710; J3010; J3490; J7120